=== PATIENT | female | born 1970 | race Caucasian/White ===

== ENCOUNTER 2017-10-21 05:59 | Inpatient (IN) | payer MEDICAID ==
[~2017-10-21] VITALS: Ht 167.6 cm; Wt 71.7 kg
[2017-10-21] MEDS ORDERED: ONDANSETRON HCL 4MG/2ML VIAL IV STA (07:16)
[2017-10-21] MEDS ORDERED: MORPHINE SULFATE 4 MG/ML CPJ (NOT FOR IM USE) IV STA (07:16)
[2017-10-21 07:41] LABS: BASOPHILS % 0.5 % (0.0-2.0); EOSINOPHILS % 0.5 % (0.0-5.0); HEMATOCRIT. 37.9 % (36.0-48.0); HEMOGLOBIN. 12.3 g/dL (12.0-16.0); LYMPHOCYTES % 15.6 % (20.0-50.0); MEAN CORPUSCULAR HEMOGLOBIN 25.3 pg (28.0-32.0); MEAN CORPUSCULAR VOLUME 78.2 fL (81.0-99.0); MEAN PLATELET VOLUME 7.7 fl (7.4-10.4); MONOCYTES % 5.1 % (2.0-8.0); NEUTROPHILS % 78.3 % (40.0-76.0); PLATELET 280 x1000/uL (130-400); RED BLOOD CELL COUNT 4.84 mill/uL (4.2-5.4); RED CELL DISTRIBUTION WIDTH 16.2 % (11.6-14.6)
[2017-10-21 07:47] LABS: INR 1.1
[2017-10-21 07:55] LABS: CARBON DIOXIDE 26 mEq/L (21-32); CHLORIDE 105 mEq/L (98-107)
[2017-10-21 07:56] LABS: HCG SCREEN NEGATIVE
[2017-10-21 08:45] LABS: CLARITY URINE CLOUDY (CLEAR); COLOR URINE YELLOW (YELLOW); KETONES URINE TRACE (NEGATIVE); LEUKOCYTE ESTERASE URINE TRACE (NEGATIVE); NITRITE URINE NEGATIVE (NEGATIVE); OCCULT BLOOD URINE NEGATIVE (NEGATIVE); PH URINE 7.5 (4.5-8.0); PROTEIN URINE TRACE (NEGATIVE); SPECIFIC GRAVITY URINE 1.028 (1.005-1.030); UROBILINOGEN URINE 0.2 E.U./dL (0.2-1.0)
[2017-10-21] MEDS ORDERED: IOHEXOL-300 100 ML BOTTLE ONE (08:50)
[2017-10-21] MEDS ORDERED: MORPHINE SULFATE 4 MG/ML CPJ (NOT FOR IM USE) IV ONE (11:45)
[2017-10-21] MEDS ORDERED: SODIUM CHLORIDE 0.9% 1,000 ML IV SCH (12:10)
[2017-10-21] MEDS ORDERED: ONDANSETRON HCL 4MG/2ML VIAL IV PRN (12:15)
[2017-10-21] MEDS ORDERED: CLONIDINE 0.1MG TABLET PO PRN (12:15)
[2017-10-21] MEDS ORDERED: ACETAMINOPHEN 325MG TABLET PO PRN (12:15)
[2017-10-21] MEDS ORDERED: HYDROCODONE/ACETAMINOPHEN 5/325MG TABLET PO PRN (12:15)
[2017-10-21] MEDS ORDERED: DIPHENHYDRAMINE 50MG/ML VIAL IV PRN (12:15)
[2017-10-21] MEDS ORDERED: IPRATROPIUM/ALBUTEROL 0.5-3(2.5)MG/3ML NEB INH PRN (12:15)
[2017-10-21 13:40] VITALS: BP 123/94
[2017-10-21 14:00] VITALS: BP 123/94
[2017-10-21] MEDS ORDERED: MORPHINE SULFATE 2 MG/ML CPJ (NOT FOR IM USE) IV PRN (14:15)
[2017-10-21 16:00] VITALS: BP 124/80
[2017-10-21] MEDS ORDERED: DIATR MEGLU/DIATRIZOATE SOLN 120ML ONE (17:57)
[2017-10-21 20:00] VITALS: BP 125/87
[2017-10-22] VITALS: BP 124/85
[2017-10-22 04:00] VITALS: BP 137/84
[2017-10-22 07:23] LABS: BASOPHILS % 0.4 % (0.0-2.0); EOSINOPHILS % 1.2 % (0.0-5.0); HEMATOCRIT. 38.3 % (36.0-48.0); HEMOGLOBIN. 12.2 g/dL (12.0-16.0); LYMPHOCYTES % 33.6 % (20.0-50.0); MEAN CORPUSCULAR HEMOGLOBIN 25.3 pg (28.0-32.0); MEAN CORPUSCULAR VOLUME 79.2 fL (81.0-99.0); MEAN PLATELET VOLUME 8.1 fl (7.4-10.4); MONOCYTES % 7.3 % (2.0-8.0); NEUTROPHILS % 57.5 % (40.0-76.0); PLATELET 311 x1000/uL (130-400); RED BLOOD CELL COUNT 4.84 mill/uL (4.2-5.4); RED CELL DISTRIBUTION WIDTH 16.5 % (11.6-14.6)
[2017-10-22 08:00] VITALS: BP 120/79
[2017-10-22 08:21] LABS: CARBON DIOXIDE 25 mEq/L (21-32); CHLORIDE 111 mEq/L (98-107); HDL CHOLESTEROL 66 mg/dL (40-59); LDL CHOLESTEROL 122 mg/dL (5-100)
[2017-10-22 12:00] VITALS: BP 111/75
[2017-10-22] MEDS ORDERED: POTASSIUM CHLORIDE 20MEQ TABLET SR PO ONE (13:00)
[2017-10-22 13:23] VITALS: BP 111/75
== END 2017-10-22 13:56 | disposition home or self-care (01) | DRG 247 ==
LOC: ER 07:38 → 6EST 12:06 → EDBEDREQ 12:09 → CANRESERV 12:29 → ENRESERV 12:29
PROVIDERS: ADMIT Internal Medicine; ATTEND Internal Medicine
DX: K56.609 Unspecified intestinal obstruction, unspecified as to partial versus complete obstruction (principal); I10 Essential (primary) hypertension; Z98.891 History of uterine scar from previous surgery
CPT/HCPCS: 36415; 74000; 74177; 74250; 80053; 80061; 81001; 81025; 83690; 84703; 85025; 85610; 87040; 96374; 96375; 96376; 99285; J2270; J2405; Q9963; Q9967